=== PATIENT | female | born 1955 | race Hispanic/Latino ===

== ENCOUNTER 2018-03-18 13:24 | Inpatient (IN) | payer SELFPAY ==
[2018-03-18 14:58] LABS: #Eosinphils 0.1 thou/uL (0.0-0.7); #Lymphocytes 0.7 thou/uL (1.20-3.40); #Monocytes 0.6 thou/uL (0.11-0.59); #Neutrophils 6.9 thou/uL (1.40-6.50); %Basophils 0.1 % (0.0-1.0); %Eosinophils 0.7 % (0.0-10.0); %Lymphocytes 8.1 % (21.0-51.0); %Monocytes 6.9 % (0.0-10.0); %Neutrophils 84.1 % (42.0-75.0); Hemoglobin 9.2 g/dL (12.0-16.0); Mean Corpuscular HGB CONC 32.6 g/dL (32.0-36.0); Mean Corpuscular Hemoglobin 26.3 pg (27.0-31.0); Mean Corpuscular Volume 80.7 fL (78.0-98.0); Mean Platelet Volume 7.2 fL (7.4-10.4); Platelet Count 310 thou/uL (130-400); RBC Distribution Width 15.5 % (11.5-14.5); Red Blood Cell (RBC) Count 3.49 mill/uL (4.20-5.40); White Blood Cell (WBC) Count 8.2 thou/uL (4.8-10.8)
--- NOTE | 2018-03-18 15:19 | ULT ---
DOPPLER VENOUS ULTRASOUND OF RIGHT LOWER EXTREMITY: Date: 03/18/18 INDICATION: Right lower extremity pain and edema. TECHNIQUE: Smith scale, color Doppler, and vascular duplex with spectral analysis was performed of the deep venou s structures of the right lower extremity. The common femoral vein, superficial femoral vein, proxima l greater saphenous vein, proximal greater profunda vein, popliteal, and posterior tibial veins were assessed. FINDINGS: Normal compression, flow, and augmentation was seen within the deep venous structures on the right lo wer extremity. Incidental note is made of a 3.5 x 0.9 cm enlarged lymph node within the right inguina l region. IMPRESSION: 1. No evidence of deep venous thrombosis within the right lower extremity. 2. Mildly enlarged lymph node within the right inguinal region. POS: LUPE
[2018-03-18 15:20] LABS: ALT (SGPT) 22 U/L (8-55); AST (SGOT) 17 U/L (5-34); Albumin 3.6 g/dL (3.4-4.8); Alkaline Phosphatase 125 U/L (40-150); Anion Gap 12 mmol/L (10-20); BUN (Urea Nitrogen) 12 mg/dL (9.8-20.1); Bilirubin, Total 0.3 mg/dL (0.2-1.2); Calc. Creatinine Clearance 0 mL/min (70-130); Calcium 10.2 mg/dL (7.8-10.44); Carbon Dioxide 27 mmol/L (23-31); Chloride 105 mmol/L (98-107); Estimated GFR-MDRD 87; Globulin 3.3 g/dL (2.4-3.5); Glucose 155 mg/dL (80-115); Potassium 3.7 mmol/L (3.5-5.1); Protein, Total 6.9 g/dL (6.0-8.3); Sodium 140 mmol/L (136-145)
[2018-03-18] MEDS ORDERED: Acetaminophen 500 MG TAB ONE (15:51)
[2018-03-18] MEDS ORDERED: Acetaminophen 500 MG TAB PO PRN (17:33)
[2018-03-18 17:52] LABS: Hemoglobin A1c 6.4 % (4.0-6.0)
[2018-03-18] MEDS ORDERED: Vancomycin HCl 1 GM in Premix Bag 1 BAG IVPB SCH (18:15)
[2018-03-18 21:46] VITALS: BMI 34.9
--- NOTE | 2018-03-18 22:30 | HP ---
DATE OF ADMISSION: 03/18/2018 CHIEF COMPLAINT: Right lower extremity pain and swelling and redness for the last few days. HISTORY OF PRESENT ILLNESS: The patient is a 62-year-old female who is visiting [place] from [place] who noticed approximately 2 days ago increased of swelling, redness, and temperature of her ri ght lower extremity below the knee, which gradually got worse to the point that she decided to come t o the emergency room today and looks for some medical attention. She had this 3 times before, she wa s hospitalized in June for the same reason in [place] in the hospital. She did not get any fever o r chills. No nausea, no vomiting, no chest pain, no shortness of breath. PAST MEDICAL HISTORY: Positive for: 1. Hypertension. 2. Arthritis. 3. Recurrent cellulitis of the right leg. PAST SURGICAL HISTORY: None. ALLERGIES: None. FAMILY HISTORY: Both parents are healthy. No medical issues. SOCIAL HISTORY: She does not have any history of cigarette smoking, alcohol intake, or using illicit drugs. MEDICATIONS: Blood pressure medicine, she does not know the name and some medications for arthritis, she does not know the name either. REVIEW OF SYSTEMS: Only positive for those which are mentioned in the HPI, otherwise negative ten sy stems were reviewed. PHYSICAL EXAMINATION: VITAL SIGNS: Her blood pressure is 124/88, her pulse is 78, her respiratory rate is 16, O2 saturatio ns is 96% on room air. HEENT: Head is atraumatic, normocephalic. Eyes are PERRLA. Conjunctivae are pinkish. Oral mucosa is moist. NECK: Supple. No lymphadenopathy. Thyroid is not palpable. LUNGS: Clear. HEART: S1, S2 normal. No S3, no S4, no any murmur. ABDOMEN: Soft, nontender, obese, nondistended, bowel sounds are present. No organomegaly. EXTREMITIES: No clubbing. There is swelling and redness of the right lower extremity, [id number], tender to touch, quite warm. Also, there is right groin tender, small nodule which is most likely in a lymph node, which is confirmed by the ultrasound done today in the emergency room. NEUROLOGIC: She is alert and oriented x4. There is no any motor or sensory deficits present. Crani al nerves are intact. LABORATORY DATA: Showed white count of 8.2, hemoglobin of 9.2, hematocrit 28.2, platelet count is 31 0. Normal chemistry, glucose 155. IMPRESSION: 1. Right lower extremity recurrent cellulitis. 2. Normocytic anemia, unclear etiology. 3. Hyperglycemia. Based on the random blood sample, I suspect that there is some diabetic tendency, maybe she is prediabetic, but there is some predisposing factor to this recurrent infection. PLAN: To admit her full admission. Condition is fair. Activity: Bed rest and bathroom privileges. IV Hep-Lock, IV vancomycin, and Zosyn full coverage for now. Blood cultures x2. Morphine for mode rate pain and Tylenol p.o. for mild pain or temperature more than 101. We will do hemoglobin A1c on her. We will do C-reactive protein and sed rate. Deep venous thrombosis prophylaxis with low molecu lar weight heparin 40 mg subcutaneously every 24 hours.
[2018-03-19] MEDS: Piperacillin/Tazobactam 3.375 GM in Sodium Chloride 0.9% 100 ML IVPB SCH ×5 (01:00→23:49)
[2018-03-19 04:51] LABS: #Eosinphils 0.1 thou/uL (0.0-0.7); #Lymphocytes 0.9 thou/uL (1.20-3.40); #Monocytes 0.5 thou/uL (0.11-0.59); #Neutrophils 5.4 thou/uL (1.40-6.50); %Eosinophils 1.4 % (0.0-10.0); %Lymphocytes 13.4 % (21.0-51.0); %Monocytes 7.2 % (0.0-10.0); %Neutrophils 78.1 % (42.0-75.0); Hemoglobin 8.3 g/dL (12.0-16.0); Mean Corpuscular HGB CONC 32.8 g/dL (32.0-36.0); Mean Corpuscular Hemoglobin 26.3 pg (27.0-31.0); Mean Corpuscular Volume 80.3 fL (78.0-98.0); Mean Platelet Volume 6.8 fL (7.4-10.4); Platelet Count 318 thou/uL (130-400); RBC Distribution Width 15.3 % (11.5-14.5); Red Blood Cell (RBC) Count 3.15 mill/uL (4.20-5.40); White Blood Cell (WBC) Count 6.9 thou/uL (4.8-10.8)
[2018-03-19] MEDS: Enoxaparin Sodium 40 MG/0.4 ML SYRINGE SC SCH (09:01)
--- NOTE | 2018-03-19 15:29 | PDOC.PN ---
- Subjective Encounter Start Date: 03/19/18 Encounter Start Time: 10:00 Pt seen for followup re: cellulitis. Denies chest pain, shortness of breath, fevers or chills. pt is Divehi-speaking, family member was babbitt spinner for this encounter. - Objective Resuscitation Status: Resuscitation Status FULL:Full Resuscitation MAR Reviewed: Yes Vital Signs & Weight: Vital Signs (12 hours) Temp Pulse Resp BP BP Pulse Ox 03/19/18 11:00 98.3 F 74 18 124/70 94 L 03/19/18 08:00 98.5 F 72 18 03/19/18 04:20 97.8 F 70 18 118/71 94 L Weight Weight 209 lb 9 oz I&O: 03/18/18 03/19/18 03/20/18 06:59 06:59 06:59 Intake Total 480 Balance 480 Result Diagrams: 03/19/18 04:16 03/18/18 14:50 Additional Labs: labs reviewed by me Phys Exam - Physical Examination Obesity HEENT: moist MMs, sclera anicteric, oral pharynx no lesions, 2+ tonsils Neck: no nodes, no JVD, supple, full ROM Respiratory: no wheezing, no rales, no rhonchi, clear to auscultation bilateral Cardiovascular: RRR, no rub S1, S2 Gastrointestinal: soft, non-tender, no distention, positive bowel sounds Neurological: moves all 4 limbs Psychiatric: normal affect, A&O x 3 Deviation from normal: RLE cellulitis Dx/Plan (1) Cellulitis Code(s): L03.90 - CELLULITIS, UNSPECIFIED Status: Acute Comment: continue IV antibiotics as below, follow cultures (2) HTN (hypertension) Code(s): I10 - ESSENTIAL (PRIMARY) HYPERTENSION Status: Chronic Comment: Controlled (3) Arthritis Code(s): M19.90 - UNSPECIFIED OSTEOARTHRITIS, UNSPECIFIED SITE Status: Chronic Comment: Stable - Plan * . Review of Systems - Review of Systems Constitutional: negative: fever, chills, sweats, weakness, malaise Respiratory: negative: Cough, Shortness of Breath, SOB with Excertion, Pleuritic Pain, Wheezing Cardiovascular: negative: chest pain, palpitations, orthopnea, paroxysmal nocturnal dyspnea, edema, light headedness Gastrointestinal: negative: Nausea, Vomiting, Abdominal Pain, Diarrhea, Constipation, Melena, Hematochezia Genitourinary: negative: Dysuria, Frequency, Incontinence, Hematuria, Retention Skin: Rash - Medications/Allergies Allergies/Adverse Reactions: Allergies Allergy/AdvReac Type Severity Reaction Status Date / Time No Known Allergies Allergy Verified 03/18/18 17:55 Medications: Current Medications Acetaminophen (Tylenol) 500 mg PO Q6H PRN PRN Reason: Pain Enoxaparin Sodium (Lovenox) 40 mg SC 0900 [facility] Last Admin: 03/19/18 09:01 Dose: 40 mg Piperacillin Sod/Tazobactam (Sod 3.375 gm/ Sodium Chloride) 100 mls @ 200 mls/ hr IVPB Q6HR [facility] Last Admin: 03/19/18 12:09 Dose: 100 mls Vancomycin HCl 2 gm/ Sodium (Chloride) 500 mls @ 250 mls/hr IVPB 0400,1600 MIRE[facility] Last Admin: 03/19/18 15:23 Dose: 500 mls Miscellaneous Medication (Pharmacy To Dose) 1 each IVPB PRN PRN PRN Reason: . Morphine Sulfate (Morphine) 2 mg SLOW IVP Q4H PRN PRN Reason: Moderate Pain (4-6)
[2018-03-19] MEDS ORDERED: Vancomycin HCl 1.25 GM in Sodium Chloride 0.9% 250 ML 250 ML IVPB SCH (16:30)
[2018-03-20 03:06] LABS: #Eosinphils 0.2 thou/uL (0.0-0.7); #Lymphocytes 1.5 thou/uL (1.20-3.40); #Monocytes 0.6 thou/uL (0.11-0.59); #Neutrophils 3.9 thou/uL (1.40-6.50); %Basophils 0.1 % (0.0-1.0); %Eosinophils 2.7 % (0.0-10.0); %Lymphocytes 23.8 % (21.0-51.0); %Monocytes 9.9 % (0.0-10.0); %Neutrophils 63.6 % (42.0-75.0); Hemoglobin 8.4 g/dL (12.0-16.0); Mean Corpuscular HGB CONC 32.6 g/dL (32.0-36.0); Mean Corpuscular Hemoglobin 26.3 pg (27.0-31.0); Mean Corpuscular Volume 80.8 fL (78.0-98.0); Mean Platelet Volume 6.5 fL (7.4-10.4); Platelet Count 332 thou/uL (130-400); RBC Distribution Width 15.3 % (11.5-14.5); Red Blood Cell (RBC) Count 3.19 mill/uL (4.20-5.40); White Blood Cell (WBC) Count 6.2 thou/uL (4.8-10.8)
[2018-03-20] MEDS: Piperacillin/Tazobactam 3.375 GM in Sodium Chloride 0.9% 100 ML IVPB SCH ×3 (07:22→18:50)
[2018-03-20] MEDS: Enoxaparin Sodium 40 MG/0.4 ML SYRINGE SC SCH (08:15)
[2018-03-20] MEDS: Ibuprofen 200 MG TAB PO PRN (15:38)
--- NOTE | 2018-03-20 23:37 | PDOC.PN ---
- Subjective Encounter Start Date: 03/20/18 Encounter Start Time: 11:00 Patient seen and examined for RLE cellulitis. Erythema improving. Some discomfort in RLE. No new complaints. No overnight events - Objective Resuscitation Status: Resuscitation Status FULL:Full Resuscitation MAR Reviewed: Yes Vital Signs & Weight: Vital Signs (12 hours) Temp Pulse Resp BP Pulse Ox 03/20/18 20:00 98.1 F 82 16 155/58 H 93 L Weight Weight 209 lb 9 oz I&O: 03/19/18 03/20/18 03/21/18 06:59 06:59 06:59 Intake Total 1620 1989 Balance 1620 1989 Result Diagrams: 03/20/18 02:55 03/18/18 14:50 Additional Labs: Microbiology 03/18/18 16:24 Venous blood - Left Hand Blood Culture - Preliminary NO GROWTH AT 48 HOURS 03/18/18 16:19 Venous blood - Left Arm Blood Culture - Preliminary NO GROWTH AT 48 HOURS Laboratory Tests 03/18/18 03/18/18 14:50 14:50 Hemoglobin A1c 6.4 H C-Reactive Protein 13.46 H Radiology Reviewed by me: Yes (Doppler RLE - No DVT) Phys Exam - Physical Examination Constitutional: NAD Neck: no JVD Respiratory: no wheezing, no rales, no rhonchi, clear to auscultation bilateral Cardiovascular: RRR, no significant murmur, no rub no heaves/pulsations Gastrointestinal: soft, non-tender, positive bowel sounds Musculoskeletal: edema present (RLE with erythema - improving per family) Neurological: non-focal, normal sensation, moves all 4 limbs Psychiatric: normal affect, A&O x 3 Dx/Plan (1) Cellulitis Code(s): L03.90 - CELLULITIS, UNSPECIFIED Status: Acute Qualifiers: Site of cellulitis of extremity: lower extremity Laterality: right (2) Obesity (BMI 30-39.9) Code(s): E66.9 - OBESITY, UNSPECIFIED Status: Chronic (3) HTN (hypertension) Code(s): I10 - ESSENTIAL (PRIMARY) HYPERTENSION Status: Chronic Comment: Controlled (4) Impaired glucose tolerance Code(s): R73.02 - IMPAIRED GLUCOSE TOLERANCE (ORAL) Status: Acute (5) CKD (chronic kidney disease) stage 2, GFR 60-89 ml/min Code(s): N18.2 - CHRONIC KIDNEY DISEASE, STAGE 2 (MILD) Status: Chronic - Plan plan discussed w/ family, continue antibiotics, out of bed/ambulate, DVT proph w /lovenox, DVT proph w/SCDs Continue current Atbx x 24 hr -: Consult Chemical Engineering Intern -: Counselled on lifestyle modification -: DC in AM if stable -: RLE elevation advised Review of Systems - Review of Systems Respiratory: negative: Cough, Dry, Shortness of Breath, Hemoptysis, SOB with Excertion, Pleuritic Pain, Sputum, Wheezing Cardiovascular: negative: chest pain, palpitations, orthopnea, paroxysmal nocturnal dyspnea, edema, light headedness, other - Medications/Allergies Allergies/Adverse Reactions: Allergies Allergy/AdvReac Type Severity Reaction Status Date / Time No Known Allergies Allergy Verified 03/18/18 17:55 Medications: Current Medications Acetaminophen (Tylenol) 500 mg PO Q6H PRN PRN Reason: Pain Piperacillin Sod/Tazobactam (Sod 3.375 gm/ Sodium Chloride) 100 mls @ 200 mls/ hr IVPB Q6HR MIRE[facility] Last Admin: 03/20/18 18:50 Dose: 100 mls Vancomycin HCl 2 gm/ Sodium (Chloride) 500 mls @ 250 mls/hr IVPB 0400,1600 MIRELA Last Admin: 03/20/18 15:38 Dose: 500 mls Ibuprofen (Motrin) 400 mg PO Q6H PRN PRN Reason: Pain Last Admin: 03/20/18 15:38 Dose: 400 mg Miscellaneous Medication (Pharmacy To Dose) 1 each IVPB PRN PRN PRN Reason: .
[2018-03-21] MEDS: Piperacillin/Tazobactam 3.375 GM in Sodium Chloride 0.9% 100 ML IVPB SCH ×3 (00:10→11:57)
[2018-03-21] MEDS: Ibuprofen 200 MG TAB PO PRN ×2 (05:20→13:04)
[2018-03-21 07:15] VITALS: BP 129/77; TEMP 98.7
== END 2018-03-21 16:02 | disposition home or self-care (01) | DRG 603 ==
LOC: ERS 13:24 → T4-B 17:06
PROVIDERS: ADMIT Internal Medicine; ATTEND Internal Medicine
DX: L03.115 Cellulitis of right lower limb (principal); E66.9 Obesity, unspecified; Z68.34 Body mass index [BMI] 34.0-34.9, adult; I12.9 Hypertensive chronic kidney disease with stage 1 through stage 4 chronic kidney disease, or unspecified chronic kidney disease; N18.2 Chronic kidney disease, stage 2 (mild); M19.90 Unspecified osteoarthritis, unspecified site; D64.9 Anemia, unspecified; R73.9 Hyperglycemia, unspecified
CPT/HCPCS: 36415; 80053; 80202; 83036; 83605; 85025; 85652; 86140; 87040; J1650; J2270; J2543; J3370; J7050